=== PATIENT | female | born 1985 | race Caucasian/White ===

== ENCOUNTER 2022-05-20 01:00 | Emergency (ER) | payer OTHER ==
[2022-05-20] MEDS ORDERED: Take Home: Acetaminophen/Codeine 300 MG/30 MG, 5 Tab Pack PO ONE (01:25)
[2022-05-20] MEDS: Ketorolac 30 MG/ML SDV IM ONE (01:40)
[2022-05-20] MEDS ORDERED: Take Home: Acetaminophen/HYDROcodone 325-5 MG, 5 Tab Pack PO ONE (01:47)
[2022-05-20] MEDS: Take Home: Acetaminophen/HYDROcodone 325-5 MG, 5 Tab Pack PO ONE (02:07)
[2022-05-20 02:28] VITALS: BP 141/95; PULSE 105
== END 2022-05-20 02:10 | disposition home or self-care (01) ==
LOC: VM.ED 01:00
DX: K08.89 Other specified disorders of teeth and supporting structures (principal); G89.18 Other acute postprocedural pain; Z88.8 Allergy status to other drugs, medicaments and biological substances; Z88.1 Allergy status to other antibiotic agents
CPT/HCPCS: 96372; 99282; 99283; A9270-GY; J1885